=== PATIENT | female | born 1955 | race Caucasian/White ===

== ENCOUNTER 2017-01-13 05:27 | Observation (INO) | payer OTHER ==
[2017-01-13] VITALS (7 sets, daily range): BP systolic 117–137; BP diastolic 68–79
[~2017-01-13] VITALS: Ht 172.7 cm; Wt 78.0 kg
--- NOTE | ~2017-01-13 | H ---
[facility] [address] [address] HISTORY AND PHYSICAL Name: OKSANA HILTON Room #: 411-P [facility] Amber Euceda#: [id number] Admission: 01/13/17 Attend Phys: Lincoln Santiago MD Discharge: 01/14/17 Date of : 51 Report #: [id number] THIS REPORT FOR: //name// For History and Physical, please see office documentation/handwritten note in the patient's medical record. <ELECTRONICALLY SIGNED> By: Lincoln Santiago MD 01/19/17 1820 1556 Lincoln Santiago MD /
--- NOTE | ~2017-01-13 | S ---
[facility] [address] [address] [place] [address] SURGICAL PATH RPT PROCEDURE Name: ANN MARIE MCDOWELL Room #: 411-P [facility] Amber Euceda#: [id number] Admission: 01/13/17 Date of : 51 Discharge: Report #: [id number] Path Case #: [id number] PATHOLOGY REPORT COLLECTION DATE: 01/13/2017 RECEIVED DATE: 01/13/2017 SUBMITTING PHYS: Dr. Lincoln Santiago OTHER PHYS: Dr. Wallace Martinez SPECIMEN(S) RECEIVED: A.Portion right superior B.Portion right inferior C.Left inferior parathyroid D.Left superior parathyroid E.Left superior parathyroid F.Right superior parathyroid * * * * * * * * * * * * FINAL DIAGNOSIS: A. Parathyroid, portion right superior, biopsy: - Hypercellular parathyroid tissue. B. Parathyroid, portion right inferior, biopsy: - Hypercellular parathyroid tissue. C. Parathyroid, left inferior parathyroid, biopsy: - Markedly hypercellular parathyroid tissue, consistent with a dominant nodule measuring 1.0 cm in greatest dimensions. D. Parathyroid, left superior parathyroid, biopsy: - Hypercellular parathyroid tissue. E. Parathyroid, left superior parathyroid, biopsy: - Hypercellular parathyroid tissue. F. Parathyroid, right superior parathyroid, biopsy: - Hypercellular parathyroid tissue. (IUV; 01/14/17) PATHOLOGIST: Keiko Saleh M.D. REPORT ELECTRONICALLY SIGNED BY: Keiko Saleh M.D. DATE/TIME: 01/14/2017 12:58 * * * * * * * * * * * * GROSS PATHOLOGY: A. The specimen is received fresh from the operating room labeled with the patient's name, and "portion right superior" consists of a triangular red-reis fragment of tissue measuring 0.7 cm. Submitted in entirety for frozen section as FSA1, subsequently submitted for permanent sections as A1. [address] [address] SURGICAL PATH RPT PROCEDURE Name: ANN MARIE MCDOWELL Room #: 411-P [facility].#: [id number] Admission: 01/13/17 Date of : 51 Discharge: Report #: [id number] Path Case #: [id number] B. The specimen is received fresh from the operating room labeled with the patient's name, and "portion right inferior" consists of a tiny red-reis fragment of tissue measuring 0.3 cm. Submitted in entirety for frozen section as FSB1, subsequently submitted for permanent sections as B1. C. The specimen is received fresh from the operating room labeled with the patient's name, and "left inferior parathyroid" consists of an oval red-reis fragment of tissue measuring 1.0 x 0.6 x 0.5 cm. The capsule is inked black, the specimen is bisected, and entirely submitted for frozen section as FSC1, subsequently submitted for permanent sections as C1. D. The specimen is received fresh from the operating room labeled with the patient's name, and "left superior parathyroid" consists of a red-reis fragment of tissue measuring 0.4 cm in greatest dimension. Submitted in entirety for frozen section as FSD1, subsequently submitted for permanent sections as D1. (IUV:mgr; d/t: 01/13/17) E. The specimen is received in formalin labeled "Ann Marie Mcdowell, left superior parathyroid". Received are two segments of yellow-reis lobulated-appearing tissue measuring 1.3 x 1.1 x 0.2 cm in aggregate dimensions. The specimen has an aggregate weight of less than 1 g. The specimen is submitted entirely in cassette E1. F. The specimen is received in formalin labeled "Ann Marie Mcdowell, right superior parathyroid". Received is a segment of yellow-reis lobulated-appearing tissue measuring 1.2 x 0.6 x 0.2 cm in greatest dimensions. The specimen weighs less than 1 g. The specimen is submitted entirely in cassette F1. (CAA; 01/13/2017) FROZEN SECTION DIAGNOSIS: (John Saleh M.D.) FSA1, "portion right superior," biopsy: - Hypercellular parathyroid tissue present. FSB1, "portion right inferior," biopsy: - Hypercellular parathyroid tissue present. FSC1, "left inferior parathyroid," biopsy: - Markedly hypercellular parathyroid tissue present. FSD1, "left superior parathyroid," biopsy: - Hypercellular parathyroid tissue present. These findings are discussed with Dr. Jairo Santiago in OR5 at [facility], and a written report is placed in the patient's chart. (IUV:mgr; d/t: 01/13/17) Testing performed by [facility] at [address] , [place] [address] SURGICAL PATH RPT PROCEDURE Name: ANN MARIE MCDOWELL Room #: 411-P [facility] M.R.#: [id number] Admission: 01/13/17 Date of : 51 Discharge: Report #: [id number] Path Case #: [id number] CLINICAL HISTORY: History of primary hyperparathyroidism, and kidney transplant a few years ago. INITIAL CPT CODE(S): A; 72046, 22648 B; 40332, 10800 C; 52382, 31837 D; 98225, 65294 E; 53550 F; 63931 Professional services performed by [facility] at [facility] [address] [place] [address] Technical services performed by [facility] at [address] [place] [address], [place] [address]. [facility] [address] [place] [address] PHONE: [phone] DIRECTOR: Álvaro Newton M.D. * * * END OF REPORT * * *
--- NOTE | ~2017-01-13 | O ---
[facility] [address] [place] [address] OPERATIVE REPORT Name: OKSANA HILTON Room #: 411-P [facility] Amber Euceda#: [id number] Admission: 01/13/17 Attend Phys: Lincoln Santiago MD Discharge: 01/14/17 Date of : 51 Report #: [id number] THIS REPORT FOR: //name// CC: Fredy Castro MD DATE OF SERVICE: 01/13/2017 PREOPERATIVE DIAGNOSIS: Hyperparathyroidism. POSTOPERATIVE DIAGNOSES: 1. Hyperparathyroidism. 2. Parathyroid hyperplasia. OPERATIVE PROCEDURE: Subtotal parathyroidectomy. ANESTHESIA: General. ESTIMATED BLOOD LOSS: 40 mL. INDICATIONS FOR SURGERY: The patient is a 61-year-old female who has hyperparathyroidism on the basis of elevated serum calcium and PTH levels. She had a kidney transplant 17 years ago. A nuclear medicine scan was suggestive of right superior parathyroid adenoma. We were assuming this was probably primary hyperparathyroidism, but she proved to have parathyroid hyperplasia. DESCRIPTION OF PROCEDURE: The patient was placed on the operating table in the supine position. After general endotracheal anesthesia was achieved and after intubation with Xomed NIM (nerve integrity monitor) endotracheal tube, each recurrent laryngeal nerve was monitored at threshold sensitivity 100 microvolt. Stimulator set at 1.0 milliamps. Both recurrent laryngeal nerves were identified and preserved during the course of procedure with the assistance of the nerve monitor and the nerve stimulator. The standard low collar horizontal skin crease incision was outlined in the lower portion of the neck. The skin site was then injected with lidocaine with epinephrine. The neck was prepped and draped in a sterile fashion. The incision was made through skin, subcutaneous tissue and platysma. Subplatysmal skin flaps were elevated superiorly and inferiorly. The strap muscles were divided along the median raphe and retracted laterally exposing each thyroid lobe. Attention was turned to the right side. The right thyroid lobe was mobilized. The right recurrent laryngeal nerve was identified deep to the right thyroid lobe and preserved through the course of the procedure. Its integrity was confirmed with the stimulator set at 1.0 milliamp. An enlarged right [address] [address] OPERATIVE REPORT Name: YOBANIOKSANA Room #: 411-P [facility] Amber Euceda#: [id number] Admission: 01/13/17 Attend Phys: Lincoln Santiago MD Discharge: 01/14/17 Date of : 51 Report #: [id number] superior parathyroid gland was noted on the undersurface of the right thyroid lobe. An enlarged inferior parathyroid gland was noted on the undersurface of the lower portion of the right thyroid lobe. Biopsies of each of these were sent and reported as hypercellular parathyroid tissue. I turned my attention to the left side. I explored the left side in a similar manner. The strap muscles were retracted laterally. The left thyroid lobe was mobilized. I identified left inferior parathyroid that had the appearance of a parathyroid adenoma. It was excised and sent for frozen section. The pathology revealed hypercellular parathyroid tissue. I then identified the left superior parathyroid gland on the undersurface of the upper portion of the left thyroid lobe. Biopsy of this proved revealed hypercellular parathyroid tissue as well. I identified the left recurrent laryngeal nerve and it responded to the stimulator at all times through the course of the procedure. On the basis of the above, the working diagnosis was that this probably represented a parathyroid hyperplasia. I elected then to proceed with a subtotal parathyroidectomy. I went ahead and resected the remaining left superior parathyroid tissue and this was sent for frozen section. I then resected the remaining right superior parathyroid tissue and this was sent for permanent histopathology. I then elected to retain the right inferior parathyroid gland. It was secured to the lower portion of the right thyroid lobe with a medium Hemoclip. It had about 2 times of normal volume and good color. I then obtained an intraoperative PTH level. The preoperative PTH level measured 178 pg/mL. The intraoperative PTH dropped to 40 pg/mL. This level was actually obtained before removal of the remaining parathyroid tissue. Therefore, I felt we had accomplished our goal. I elected to close. I placed a 10-Mongolian Esteban drain in the wound and brought it out through a stab incision where it was secured to the skin with an OpSite dressing. The strap muscles were reapproximated with 3-0 Vicryl. I secured the remaining right inferior parathyroid gland to just the right side of the midline between the strap muscles at the lower end at about 1 cm below my incision. It was also attached to the lower end of the thyroid here. We should be able to find this in the future if necessary, it was secured with suture to the strap muscle as well as the thyroid gland and there were also a few Hemoclips marking it. I then closed the skin with ____ layer of 4-0 Vicryl and Dermabond. The patient was awakened in the operating room, taken to recovery room in stable condition. She will be observed overnight and discharge home in the morning after drain removal. DISCHARGE MEDICATIONS: Include calcium carbonate, acetaminophen with [facility] [address] [place] [address] OPERATIVE REPORT Name: OKSANA HILTON Room #: 411-P [facility] Amber Andria#: [id number] Admission: 01/13/17 Attend Phys: Lincoln Santiago MD Discharge: 01/14/17 Date of : 51 Report #: [id number] hydrocodone, and cefadroxil. She will resume all of her other medications. DIET: As tolerated. ACTIVITY: Limited. She will return for serum calcium and PTH level in the fourth postoperative day and return for followup in 1 week. <ELECTRONICALLY SIGNED> By: Lincoln Santiago MD 01/19/17 1820 0945 1104 Lincoln Santiago MD /nt
[~2017-01-13 05:27] MED LIST: ACIDOPHILUS1 EAC3 PO; APAP500 PO; BIOTENE MOIST44.3 ML PO; CELLCEPT500 MG PO; ESTROVEN 155 M155 MG PO; LISINOPRIL10 MG PO; LO-DOSE ASPIRIN81 M1 PO; MAGNESIUM PO; NORVASC5 MG PO; POTASSIUM20 PO; PREDNISONE 10 M10 MG PO; PROGRAF1 MG PO; SERTRALINE PO; ZANTAC 150MG T150 M1 PO; ZOCOR 10 MG TAB10 M1 PO
[2017-01-14 01:10] VITALS: BP 119/73
[2017-01-14 04:05] VITALS: BP 111/64
[2017-01-14 09:22] VITALS: BP 123/60
[2017-01-14 09:54] LABS: CALCIUM 8.8 mg/dL (8.5-10.1); PHOSPHORUS 4.3 mg/dL (2.5-4.9)
[2017-01-14 13:52] VITALS: BP 123/60
[2017-01-14 14:08] VITALS: BP 123/60
== END 2017-01-14 15:03 | disposition home or self-care (01) ==
LOC: OR 05:27 → TBA 05:27 → OR 09:32 → 4N 11:27 → OR 11:27 → 4N 01-14 15:03
PROVIDERS: Otolaryngology Plastic Surgery within the Head & Neck
DX: E21.3 Hyperparathyroidism, unspecified (principal); E21.0 Primary hyperparathyroidism; Z79.82 Long term (current) use of aspirin; Z79.899 Other long term (current) drug therapy; J45.909 Unspecified asthma, uncomplicated; Z98.890 Other specified postprocedural states; I12.9 Hypertensive chronic kidney disease with stage 1 through stage 4 chronic kidney disease, or unspecified chronic kidney disease; N18.9 Chronic kidney disease, unspecified
CPT/HCPCS: 50010; 50101; 50331; 50386; 50417; 52190; 52220; 52225; 54118; 56524; 56526; 56668; 57006; 62110; 62900; 70005